=== PATIENT | female | born 1990 | race Caucasian/White ===

== ENCOUNTER 2016-10-13 11:11 | Emergency (ER) | payer MEDICAID ==
[~2016-10-13] VITALS: Ht 157.5 cm; Wt 77.2 kg
[~2016-10-13 11:11] MED LIST: AZIT500I PO; CYCL-36 PO; IBUP800T23 PO; METH750T2 PO; ONDA4TAB7 PO
[2016-10-13 11:12] VITALS: BP 142/78; PULSE 75; RESP 16; TEMP 98.1; O2SAT 98
--- NOTE | 2016-10-13 12:13 | PD ---
HPI Chief Complaint: Oral / Dental Pain or Problem Time Seen by Provider: 12:12 Travel History International Travel<30 days: No Contact w/Intl Traveler<30days: No Traveled to known affect area: No History of Present Illness HPI 26-year-old female presents to emergency room with complaint of left lower tooth pain 2 days. Reports cracking the tooth approximately 6 months ago and within the last 2 days pain has developed and she has swelling to her gums around the tooth. Pain is aggravated with eating and drinking. Denies facial erythema or edema. Denies fever, chills, nausea, vomiting. Allergies to multiple antibiotics as listed on the chart. She says she can take Keflex. Has a primary care provider. No other modifying factors or associated signs and symptoms. PFSH Past Medical History ADHD: Yes Bipolar Disorder: Yes Cancer: No Cardiovascular Problems: No Diabetes: No Diminished Hearing: No Psychiatric: No Integumentary: Yes (MRSA SKIN ABSCESSES, ECZEMA) Migraines: No Seizures: No Thyroid Disease: No Ulcer: No ?: Not LMP: AUG 2016 : 2 Para: 1 Miscarriage: 1 : 0 Dilation and Curettage (D&C): Yes Past Surgical History Appendectomy: No Cholecystectomy: No Other Surgery: Yes (L CALF ABSCESS W MRSA) Social History Alcohol Use: Yes (every weekend) Tobacco Use: No Substance Use: No Allergies-Medications (Allergen,Severity, Reaction): Coded Allergies: Clindamycin (Verified Allergy, Severe, Swelling, 03/10/16) Penicillin (Verified Allergy, Severe, Rash, 03/10/16) Rocephin (Verified Allergy, Severe, Anaphylaxis, 03/10/16) Vancomycin (Verified Allergy, Intermediate, Rash, 03/10/16) Adhesives (Verified Allergy, Mild, Rash, 03/10/16) Septra (Verified Allergy, Mild, Rash, 03/10/16) *MDRO Multi-Drug Resistant Organism (Verified Adverse Reaction, Unknown, ) 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 Reported Meds & Prescriptions Reported Meds & Active Scripts Active Ibuprofen 800 Mg Tab 800 Mg PO Q6HR PRN Magic Mouthwash Adult Liq (Multi-Ingredient Mouthwash/Gargle) 120 Ml Susp 5 Ml SWISH-SPIT Q3HR PRN Each 5mL contains: Nystatin 200,000units, Diphenhydramine 4.25mg, Viscous Lidocaine 10mg, Morgan syrup 0.8 mL Keflex (Cephalexin) 500 Mg Cap 500 Mg PO Q6H 10 Days Reported Zoloft (Sertraline HCl) 50 Mg Tab 50 Mg PO DAILY Abilify (Aripiprazole) 2 Mg Tab Unknown Dose PO DAILY Review of Systems Except as stated in HPI: all other systems reviewed are Neg Physical Exam Narrative GENERAL: Well-nourished, well-developed patient, in no acute distress; afebrile , nontoxic-appearing SKIN: Warm and dry. HEAD: Atraumatic. Normocephalic. No facial edema, erythema, tenderness on palpation. No lymphadenopathy. EYES: Pupils equal and round. No scleral icterus. No injection or drainage. ENT: Mucosa pink and moist. Airway patent. MOUTH: Mucous membranes moist, no lesions, tongue and gums appear normal. Left lower tooth #18 with decay and large dental cavity; with tenderness on palpation; surrounding gingiva is edematous and without erythema or drainage. No obvious abscess noted. NECK: Trachea midline. No lymphadenopathy. CARDIOVASCULAR: Regular rate. RESPIRATORY: No accessory muscle use. GASTROINTESTINAL: Flat. MUSCULOSKELETAL: No obvious deformities. No clubbing. No cyanosis. No edema. NEUROLOGICAL: Awake and alert. Oriented 3. No obvious cranial nerve deficits. Motor grossly within normal limits. Normal speech. PSYCHIATRIC: Appropriate mood and affect; insight and judgment normal. Data Data Last Documented VS Vital Signs Date Time Temp Pulse Resp B/P Pulse Ox O2 Delivery O2 Flow Rate FiO2 10/13/16 11:12 98.1 75 16 142/78 98 Orders Ibuprofen (Motrin) (10/13/16 12:30) [facility] Medical Decision Making Medical Screen Exam Complete: Yes Emergency Medical Condition: Yes Medical Record Reviewed: Yes Differential Diagnosis Dentalgia, infected dental cavity, dental abscess, gingivitis Narrative Course 26-year-old female physical exam consistent with dentalgia to the left lower tooth #18. No obvious abscess noted. No facial edema or erythema. Patient is afebrile and nontoxic-appearing. She denies fever, chills, nausea, vomiting. Has a dentist she can follow-up with. Patient says she can take Keflex. Keflex , Magic mouthwash, ibuprofen, Peridex mouth rinse prescribed for home. Ibuprofen administered in the ER. Instructed patient to follow up with dentist and she verbalized understanding and agreement with treatment plan. Patient is medically cleared and stable for discharge. Discussed reasons to return to the emergency department. Instructed patient to follow up with primary care provider. Patient agrees with treatment plan. The patients vital signs are stable and the patient is stable for outpatient follow-up and treatment. Patient discharged home, stable and in no acute distress. Diagnosis Primary Impression: Dentalgia Referrals: Dentist Primary Care Physician Patient Instructions: Dental Abscess (ED), Dental Caries (ED), General Instructions, Toothache (ED) Departure Forms: Tests/Procedures, Work Release Enter return to work date: Oct 13, 2016 Additional Instructions: Complete full course of antibiotics Ibuprofen as directed and as needed to reduce pain and inflammation Use Magic mouthwash rinse as directed and as needed to decrease pain Use Peridex as directed for oral hygiene Warm compresses to the affected area Follow-up with dentist Follow-up with primary care provider Return to emergency department immediately with worsening of symptoms Med/Other Pt SpecificInfo: Prescription(s) given Scripts Chlorhexidine Gluconate (Mouth) Liq (Peridex Liq)0.12% Soln15 Ml SWISH-SPIT BID 10 Days Ref 0 Prov:Ruthie Hawley 10/13/16 Ibuprofen 800 Mg [id number] Mg PO Q6HR PRN (PAIN) #30 TAB Ref 0 Prov:Ruthie Hawley 10/13/16 Rvpyuvvd-Qkftqisgcbzqvzd-Smoyuetud Liq (Magic Mouthwash Adult Liq)120 Ml Susp5 Ml SWISH-SPIT Q3HR PRN (PAIN SCALE 1 TO 10) #120 ML Ref 0 Each 5mL contains: Nystatin 200,000units, Diphenhydramine 4.25mg, Viscous Lidocaine 10mg, Morgan syrup 0.8 mL Prov:Ruthie Hawley 10/13/16 Cephalexin (Keflex)500 Mg [id number] Mg PO Q6H 10 Days Ref 0 Prov:Ruthie Hawley 10/13/16 Disposition: 01 DISCHARGE HOME Condition: Stable Ruthie Hawley Oct 13, 2016 12:13
[2016-10-13] MEDS ORDERED: ZOLO50TA PO (12:16)
[2016-10-13] MEDS ORDERED: ZOLO25TA PO (12:16)
[2016-10-13] MEDS ORDERED: ABIL2TAB2 PO (12:16)
[2016-10-13] MEDS ORDERED: IBUP800T23 PO (12:20)
[2016-10-13] MEDS ORDERED: MAGICADU2 SWISH-SPIT (12:20)
[2016-10-13] MEDS ORDERED: PERI0.126 SWISH-SPIT (12:20)
[2016-10-13] MEDS ORDERED: CEPH-460 PO (12:20)
[2016-10-13] MEDS ORDERED: IBUPROFEN 800 MG TAB PO ONE (12:30)
== END 2016-10-13 12:41 | disposition home or self-care (01) ==
LOC: NEPB 11:11
DX: K08.89 Other specified disorders of teeth and supporting structures (principal); F90.9 Attention-deficit hyperactivity disorder, unspecified type; F31.9 Bipolar disorder, unspecified
CPT/HCPCS: 99282

== ENCOUNTER 2017-03-16 16:14 | Emergency (ER) | payer MEDICAID ==
[~2017-03-16] VITALS: Ht 157.5 cm; Wt 65.0 kg
[~2017-03-16 16:14] MED LIST changes: +ABIL2TAB2 PO; -AZIT500I PO; +CEPH-460 PO; -CYCL-36 PO; +MAGICADU2 SWISH-SPIT; -METH750T2 PO; -ONDA4TAB7 PO; +PERI0.126 SWISH-SPIT; +ZOLO50TA PO
[2017-03-16 16:16] VITALS: BP 131/68; PULSE 94; RESP 17; TEMP 98.6; O2SAT 99
--- NOTE | 2017-03-16 16:39 | PD ---
HPI Chief Complaint: Cardiac Complaint Time Seen by Provider: 16:30 Travel History International Travel<30 days: No Contact w/Intl Traveler<30days: No Traveled to known affect area: No History of Present Illness HPI The patient was seen and examined in the presence of the nurse. This patient complains of shortness of breath. Duration is One day. She also felt like her heart was racing. She had some pressure at the top of her chest. No cough or fever. No history of cardiac or lung disease. No alleviating factors. Symptoms severity is moderate. She has history of bipolar but does not feel she was anxious or panicky. No history of PE PFSH Past Medical History ADHD: Yes Bipolar Disorder: Yes Cancer: No Cardiovascular Problems: No Diabetes: No Diminished Hearing: No Psychiatric: No Integumentary: Yes (MRSA SKIN ABSCESSES, ECZEMA) Migraines: No Seizures: No Thyroid Disease: No Ulcer: No ?: Not LMP: JANUARY 2017 : 2 Para: 1 Miscarriage: 1 : 0 Dilation and Curettage (D&C): Yes Past Surgical History Appendectomy: No Cholecystectomy: No Other Surgery: Yes (L CALF ABSCESS W MRSA) Social History Alcohol Use: Yes (every weekend) Tobacco Use: No Substance Use: No Allergies-Medications (Allergen,Severity, Reaction): Coded Allergies: Clindamycin (Verified Allergy, Severe, Swelling, 03/10/16) Penicillin (Verified Allergy, Severe, Rash, 03/10/16) Rocephin (Verified Allergy, Severe, Anaphylaxis, 03/10/16) Vancomycin (Verified Allergy, Intermediate, Rash, 03/10/16) Adhesives (Verified Allergy, Mild, Rash, 03/10/16) Septra (Verified Allergy, Mild, Rash, 03/10/16) *MDRO Multi-Drug Resistant Organism (Verified Adverse Reaction, Unknown, ) 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 Reported Meds & Prescriptions Reported Meds & Active Scripts Active Reported Zoloft (Sertraline HCl) 50 Mg Tab 50 Mg PO DAILY Abilify (Aripiprazole) 2 Mg Tab Unknown Dose PO DAILY Review of Systems General / Constitutional: No: Fever Eyes: No: Visual changes HENT: No: Headaches Cardiovascular: Positive: Palpitations, Tachycardia, No: Chest Pain or Discomfort Respiratory: Positive: Shortness of Breath Gastrointestinal: No: Abdominal Pain Genitourinary: No: Dysuria Musculoskeletal: No: Pain Skin: No Rash Neurologic: No: Weakness Psychiatric: No: Depression Endocrine: No: Polydipsia Hematologic/Lymphatic: No: Easy Bruising Physical Exam Narrative GENERAL: Well-nourished, well-developed patient in no apparent distress. SKIN: Focused skin assessment reveals no rash and nodules. Skin is Warm and dry. HEAD: Atraumatic. Normocephalic. EYES: Pupils equal and round. No scleral icterus. No injection or drainage. ENT: No nasal bleeding or discharge. Mucous membranes pink and moist. NECK: Trachea midline. No JVD. CARDIOVASCULAR: Regular rate and rhythm. No murmur appreciated. RESPIRATORY: No accessory muscle use. Clear to auscultation. Breath sounds equal bilaterally. GASTROINTESTINAL: Abdomen soft, non-tender, nondistended. Hepatic and splenic margins not palpable. MUSCULOSKELETAL: No obvious deformities. No clubbing. No cyanosis. No edema. NEUROLOGICAL: Awake and alert. No obvious cranial nerve deficits. Motor grossly within normal limits. Normal speech. PSYCHIATRIC: Appropriate mood and affect; insight and judgment normal. Data Data Last Documented VS Vital Signs Date Time Temp Pulse Resp B/P Pulse Ox O2 Delivery O2 Flow Rate FiO2 03/16/17 16:16 98.6 94 17 131/68 99 Orders Electrocardiogram (03/16/17 ) Iv Access Insert/Monitor (03/16/17 16:36) Complete Blood Count With Diff (03/16/17 16:36) Basic Metabolic Panel (Bmp) (03/16/17 16:36) Ed Urine Pregnancytest Poc (03/16/17 16:36) Prothrombin Time / Inr (Pt) (03/16/17 16:36) Act Partial Throm Time (Ptt) (03/16/17 16:36) D-Dimer (03/16/17 16:36) Mental Health Unit Lead Psychologist / Telemetry [id number] (03/16/17 16:36) Chest, Single Ap (03/16/17 ) Labs Laboratory Tests Test 03/16/17 16:40 White Blood Count 12.2 TH/MM3 Red Blood Count 4.52 MIL/MM3 Hemoglobin 13.1 GM/DL Hematocrit 39.1 % Mean Corpuscular Volume 86.6 FL Mean Corpuscular Hemoglobin 29.0 PG Mean Corpuscular Hemoglobin 33.5 % Concent Red Cell Distribution Width 13.4 % Platelet Count 286 TH/MM3 Mean Platelet Volume 8.6 FL Neutrophils (%) (Auto) 60.6 % Lymphocytes (%) (Auto) 29.0 % Monocytes (%) (Auto) 7.5 % Eosinophils (%) (Auto) 2.3 % Basophils (%) (Auto) 0.6 % Neutrophils # (Auto) 7.4 TH/MM3 Lymphocytes # (Auto) 3.5 TH/MM3 Monocytes # (Auto) 0.9 TH/MM3 Eosinophils # (Auto) 0.3 TH/MM3 Basophils # (Auto) 0.1 TH/MM3 CBC Comment DIFF FINAL Differential Comment Prothrombin Time 10.3 SEC Prothromb Time International 0.9 RATIO Ratio Activated Partial 29.4 SEC Thromboplast Time D-Dimer Quantitative (PE/DVT) 0.36 MG/L FEU Sodium Level 142 MEQ/L Potassium Level 3.8 MEQ/L Chloride Level 105 MEQ/L Carbon Dioxide Level 25.8 MEQ/L Anion Gap 11 MEQ/L Blood Urea Nitrogen 10 MG/DL Creatinine 0.61 MG/DL Estimat Glomerular Filtration 121 ML/MIN Rate Random Glucose 83 MG/DL Calcium Level 9.0 MG/DL [facility] Medical Decision Making Medical Screen Exam Complete: Yes Emergency Medical Condition: Yes Medical Record Reviewed: Yes Differential Diagnosis PE, anxiety, panic, pneumonia Narrative Course I have reviewed the patient's electronic medical record. IV placed CBC is normal Metabolic profile is normal Urine is negative Coagulation studies are normal D-dimer is 0.36, ruling out PE in this low risk patient who is ambulatory and has no history of cancer or clot I reviewed her EKG which is normal Extended cardiac monitoring reveals sinus rhythm without ectopy or tachycardia I reviewed her chest x-ray which is normal On recheck she looks clinically well. Etiology of her symptoms is unclear. He is stable for outpatient follow-up. She is going to call her family physician tomorrow for follow-up Diagnosis Primary Impression: Shortness of breath Additional Instructions: The patient was advised to follow up with their physician and return if they worsen. Med/Other Pt SpecificInfo: Other Disposition: 01 DISCHARGE HOME Condition: Stable Aldo Zimmerman MD Mar 16, 2017 16:39
--- NOTE | 2017-03-16 16:56 | RADRPT ---
EXAM DATE/TIME: 03/16/2017 16:36 [facility] COMPARISON: CHEST SINGLE AP, March 10, 2016, 18:15. INDICATIONS : Shortness of breath. MEDICAL HISTORY : None. SURGICAL HISTORY : None. ENCOUNTER: Initial ACUITY: 1 day PAIN SCORE: 0/10 LOCATION: Bilateral chest FINDINGS: A single view of the chest demonstrates the lungs to be symmetrically aerated without evidence of mas s, infiltrate or effusion. The cardiomediastinal contours are unremarkable. Osseous structures are intact. CONCLUSION: No acute disease. Rito Fernandez MD on March 16, 2017 at 16:54 Board Certified Radiologist. This report was verified electronically.
[2017-03-16 16:59] LABS: AUTOMATED NEUTROPHIL # 7.4 TH/MM3 (1.8-7.7); BASOPHIL # 0.1 TH/MM3 (0-0.2); BASOPHIL % 0.6 % (0.0-2.0); EOSINOPHIL # 0.3 TH/MM3 (0-0.4); EOSINOPHIL % 2.3 % (0.0-4.0); HEMATOCRIT 39.1 % (35.0-46.0); HEMO FLAGS DIFF FINAL; LYMPHOCYTE # 3.5 TH/MM3 (1.0-4.8); MEAN CELL VOLUME 86.6 FL (80.0-100.0); MEAN CORPUSCULAR HGB CONC 33.5 % (32.0-36.0); MONO % 7.5 % (0.0-8.0); NEUT % 60.6 % (16.0-70.0); PLATELET COUNT 286 TH/MM3 (150-450); RED BLOOD COUNT 4.52 MIL/MM3 (4.00-5.30); RED CELL DISTRIBUTION WIDTH 13.4 % (11.6-17.2); WHITE BLOOD COUNT 12.2 TH/MM3 (4.0-11.0)
[2017-03-16 17:36] LABS: APTT (PATIENT) 29.4 SEC (24.3-30.1); INTERNATIONAL NORMALIZED RATIO 0.9 RATIO; PROTHROMBIN TIME - PATIENT 10.3 SEC (9.8-11.6)
[2017-03-16 17:37] LABS: BICARBONATE 25.8 MEQ/L (21.0-32.0); POTASSIUM 3.8 MEQ/L (3.5-5.1)
--- NOTE | 2017-03-16 21:33 | EKG ---
Date Performed: 03/16/2017 Time Performed: 16:33:23 PTAGE: 26 years EKG: Sinus rhythm NORMAL ECG PREVIOUS TRACING : 02/13/2014 12.02 No significant change from previous tracing noted. DOCTOR: Tyrel Aguiar Interpretating Date/Time 03/16/2017 21:32:00
== END 2017-03-16 18:51 | disposition home or self-care (01) ==
LOC: NEPC 16:14
DX: R06.02 Shortness of breath (principal); F31.9 Bipolar disorder, unspecified; F90.9 Attention-deficit hyperactivity disorder, unspecified type
CPT/HCPCS: 71010; 80048; 84703; 85025; 85379; 85610; 85730; 93005

== ENCOUNTER 2017-04-12 21:16 | Observation (INO) | payer MEDICAID, OTHER ==
[~2017-04-12 21:16] MED LIST changes: -CEPH-460 PO; -IBUP800T23 PO; -MAGICADU2 SWISH-SPIT; -PERI0.126 SWISH-SPIT
[2017-04-12] MEDS ORDERED: SODIUM CHLOR 0.9% 1000 ML INJ 1,000 ML IV SCH (21:29)
[2017-04-12] MEDS ORDERED: ONDANSETRON HCL 4 MG/2 ML VIAL IVP ONE (21:30)
[2017-04-12] MEDS ORDERED: SODIUM CHLORIDE 0.9% FLUSH 10 ML FLUSH IVF PRN ×2 (21:30→23:15)
[2017-04-12] MEDS ORDERED: MORPHINE SULFATE 4 MG/ML INJ IV ONE (21:30)
[2017-04-12 21:33] VITALS: BP 116/62; PULSE 95; RESP 22; TEMP 98.8; O2SAT 98
[2017-04-12 21:37] VITALS: PULSE 96; RESP 18; O2SAT 98
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
[2017-04-12 22:00] LABS: BASOPHIL # 0.1 TH/MM3 (0-0.2); BASOPHIL % 0.5 % (0.0-2.0); EOSINOPHIL # 0.3 TH/MM3 (0-0.4); EOSINOPHIL % 1.5 % (0.0-4.0); HEMATOCRIT 41.6 % (35.0-46.0); HEMO FLAGS DIFF FINAL; LYMPH % 23.7 % (9.0-44.0); LYMPHOCYTE # 4.2 TH/MM3 (1.0-4.8); MEAN CELL VOLUME 87.5 FL (80.0-100.0); MEAN CORPUSCULAR HEMOGLOBIN 29.3 PG (27.0-34.0); MEAN CORPUSCULAR HGB CONC 33.5 % (32.0-36.0); MONO % 5.7 % (0.0-8.0); NEUT % 68.6 % (16.0-70.0); PLATELET COUNT 236 TH/MM3 (150-450); RED BLOOD COUNT 4.75 MIL/MM3 (4.00-5.30); RED CELL DISTRIBUTION WIDTH 13.8 % (11.6-17.2); WHITE BLOOD COUNT 17.5 TH/MM3 (4.0-11.0)
[2017-04-12 22:10] LABS: APTT (PATIENT) 27.8 SEC (24.3-30.1); PROTHROMBIN TIME - PATIENT 10.7 SEC (9.8-11.6)
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
[2017-04-12] MEDS ORDERED: IOHEXOL 350 MG/ML 10 ML VIAL (for RAD DIAG) IV ONE (22:13)
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
[2017-04-12 22:16] LABS: BICARBONATE 19.9 MEQ/L (21.0-32.0); POTASSIUM 3.4 MEQ/L (3.5-5.1)
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
[2017-04-12] MEDS ORDERED: HYDROmorphone HCL PF 1 MG/ML VIAL IVS ONE (22:45)
[2017-04-12] MEDS ORDERED: ONDANSETRON HCL 4 MG/2 ML VIAL IV PRN (23:15)
[2017-04-13] MEDS: MORPHINE SULFATE 4 MG/ML INJ IV PUSH PRN ×6 (00:44→22:22)
[2017-04-13 03:13] VITALS: BP 124/56; PULSE 87; RESP 18; TEMP 98.2; O2SAT 96
[2017-04-13 05:22] LABS: AUTOMATED NEUTROPHIL # 14.5 TH/MM3 (1.8-7.7); BASOPHIL # 0.1 TH/MM3 (0-0.2); BASOPHIL % 0.3 % (0.0-2.0); EOSINOPHIL % 0.2 % (0.0-4.0); HEMATOCRIT 37.2 % (35.0-46.0); HEMO FLAGS DIFF FINAL; LYMPH % 14.4 % (9.0-44.0); LYMPHOCYTE # 2.7 TH/MM3 (1.0-4.8); MEAN CORPUSCULAR HEMOGLOBIN 29.1 PG (27.0-34.0); MEAN CORPUSCULAR HGB CONC 33.5 % (32.0-36.0); MONO % 6.8 % (0.0-8.0); NEUT % 78.3 % (16.0-70.0); PLATELET COUNT 207 TH/MM3 (150-450); RED BLOOD COUNT 4.28 MIL/MM3 (4.00-5.30); RED CELL DISTRIBUTION WIDTH 14.1 % (11.6-17.2); WHITE BLOOD COUNT 18.6 TH/MM3 (4.0-11.0)
[2017-04-13 07:40] VITALS: BP 117/60; PULSE 99; RESP 17; TEMP 98.3; O2SAT 96
[2017-04-13] MEDS: SODIUM CHLORIDE 0.9% FLUSH 10 ML FLUSH IV FLUSH SCH ×2 (09:00→22:20)
[2017-04-13 11:00] VITALS: BP 133/61; PULSE 84; RESP 17; TEMP 98.4; O2SAT 97
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
[2017-04-13 16:47] VITALS: BP 128/65; PULSE 92; RESP 16; TEMP 98.7; O2SAT 97
[2017-04-13] MEDS ORDERED: oxyCODONE/ACETAMINOPHEN 5 MG/325 MG TAB PO PRN (18:00)
[2017-04-13] MEDS: oxyCODONE/ACETAMINOPHEN 5 MG/325 MG TAB PO PRN (18:19)
--- NOTE | 2017-04-13 18:31 | RADRPT ---
EXAM DATE/TIME: 04/13/2017 17:57 [facility] COMPARISON: No previous studies available for comparison. INDICATIONS : Hand pain. MEDICAL HISTORY : None. SURGICAL HISTORY : None. ENCOUNTER: Initial ACUITY: 1 day PAIN SCORE: 0/10 LOCATION: Right hand FINDINGS: No definite fractures, or dislocations are identified. No definite lytic or sclerotic lesion is seen . The joint spaces are well maintained. CONCLUSION: Unremarkable study. Andrew Chávez MD on April 13, 2017 at 18:29 Board Certified Radiologist. This report was verified electronically.
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
[2017-04-13 20:20] VITALS: O2SAT 96
[2017-04-13 20:22] VITALS: BP 127/63; PULSE 78; RESP 20; TEMP 98.1; O2SAT 96
[2017-04-13] MEDS: diphenhydrAMINE HCL 25 MG CAP PO PRN (22:20)
[2017-04-14 00:16] VITALS: BP 134/73; PULSE 70; RESP 18; TEMP 97.9; O2SAT 98
[2017-04-14] MEDS: oxyCODONE/ACETAMINOPHEN 5 MG/325 MG TAB PO PRN ×4 (01:46→21:41)
[2017-04-14] MEDS: MORPHINE SULFATE 4 MG/ML INJ IV PUSH PRN ×3 (04:33→17:47)
[2017-04-14 04:46] VITALS: BP 106/63; PULSE 71; RESP 20; TEMP 98.6; O2SAT 95
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
[2017-04-14 08:26] VITALS: BP 122/60; PULSE 67; RESP 18; TEMP 98.4; O2SAT 97
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
[2017-04-14] MEDS: SODIUM CHLORIDE 0.9% FLUSH 10 ML FLUSH IV FLUSH SCH ×2 (09:32→21:42)
[2017-04-14] MEDS: SERTRALINE HCL 50 MG TAB PO SCH (09:32)
[2017-04-14] MEDS: diphenhydrAMINE HCL 25 MG CAP PO PRN ×2 (09:32→15:24)
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
[2017-04-14 11:41] VITALS: BP 115/55; PULSE 74; RESP 18; TEMP 98; O2SAT 96
[2017-04-14] MEDS ORDERED: LACTULOSE SYRUP 20 GM/30 ML CUP PO PRN (12:45)
--- NOTE | 2017-04-14 13:20 | HHI.PR ---
Subjective Subjective Notes Complains of RUE pain Eating well Awaiting Podiatry evaluation Objective Vitals/I&O Vital Signs Date Time Temp Pulse Resp B/P (MAP) Pulse Ox O2 Delivery O2 Flow Rate FiO2 04/14/17 11:41 98.0 74 18 115/55 (75) 96 04/13/17 07:40 21 04/12/17 21:37 Room Air Labs Laboratory Tests Test 04/14/17 11:15 Radiology Last Impressions Pelvis X-Ray 04/12/172128 Signed Impressions: Service Date/Time: Wednesday, April 12, 2017 22:00 - CONCLUSION: Unremarkable study. Andrew Chávez MD Head CT 04/12/172128 Signed Impressions: Service Date/Time: Wednesday, April 12, 2017 22:06 - CONCLUSION: Unremarkable study. Andrew Chávez MD Chest X-Ray 04/12/172128 Signed Impressions: Service Date/Time: Wednesday, April 12, 2017 22:11 - CONCLUSION: No acute cardiopulmonary disease. Andrew Chávez MD Chest CT 04/12/172128 Signed Impressions: Service Date/Time: Wednesday, April 12, 2017 22:12 - CONCLUSION: Clavicular fracture and soft tissue density anterior mediastinum may be thymic tissue versus substernal hematoma without a subtle fracture. Andrew Chávez MD Cervical Spine CT 04/12/172128 Signed Impressions: Service Date/Time: Wednesday, April 12, 2017 22:06 - CONCLUSION: Unremarkable study. Andrew Chávez MD Abdomen/Pelvis CT 04/12/172128 Signed Impressions: Service Date/Time: Wednesday, April 12, 2017 22:12 - CONCLUSION: Right renal stones and chronic spondylolysis L5. Andrew Chávez MD Radius/Ulna X-Ray 04/12/17 0000 Signed Impressions: Service Date/Time: Wednesday, April 12, 2017 22:08 - CONCLUSION: Unremarkable study. Andrew Chávez MD Humerus X-Ray 04/12/17 0000 Signed Impressions: Service Date/Time: Wednesday, April 12, 2017 22:04 - CONCLUSION: Unremarkable study. Andrew Chávez MD Narrative Exam GENERAL: 27 year old well-nourished, well developed female lying in bed. SKIN: Warm and dry. BUE covered with dry dressing. HEAD: Normocephalic. ENT: No nasal bleeding or discharge. Mucous membranes pink and moist. NECK: Trachea midline. No JVD. CARDIOVASCULAR: Regular rate and rhythm. RESPIRATORY: No accessory muscle use. Lungs clear to auscultation. Breath sounds equal bilaterally. GASTROINTESTINAL: Abdomen soft, non-tender, nondistended. + BS. MUSCULOSKELETAL: Extremities without cyanosis, or edema. RUE sling in place. MAEW. NEUROLOGICAL: Awake and alert. Normal speech. A/P Assessment and Plan INJURIES: RIGHT clavicle fx (non-op) Substernal hematoma RIGHT Pulmonary contusion ? RIGHT great toe fx Diet: Regular Pulm: IS Pain: Percocet, Morphine IV, added ibuprofen Activity: OOB. PT ordered GI: Pepcid Bowel: Selene-colace, Lactulose PRN. No BM yet. DVT: SCDs, Lovenox 40 QD RIGHT clavicle fx Orthopedic consulted Nonoperative management Maintain sling Pain control Substernal hematoma, RIGHT Pulmonary contusion Nonoperative management Pulmonary toileting OOB- PT Pain control CXR pending AM labs RIGHT great toe pain Podiatry consulted- awaiting recommendations Fracture boot ordered CT foot shows no fracture just soft tissue injury Plan of care discussed with patient and her mother at bedside. Attending Statement patient seen at bedside c/o foot pain await podiatry recs pain control Attestation The exam, history, and the medical decision-making described in the above note were completed with the assistance of the mid-level provider. I reviewed and agree with the findings presented. I attest that I had a [id number] encounter with the patient on the same day, and personally performed and documented my assessment and findings in the medical record. Diana Colunga Apr 14, 2017 13:20 Fermin Morales MD Apr 17, 2017 21:13
--- NOTE | 2017-04-14 13:37 | OTSOAPIP ---
TIME SESSION COMPLETED: [address] SCAN FOR R/O FRACTURE OF FOOT. Therapist: Sofia Jaimes OTR/L Signature on file
--- NOTE | 2017-04-14 13:45 | RADRPT ---
EXAM DATE/TIME: 04/14/2017 13:19 [facility] COMPARISON: CHEST SINGLE AP, April 12, 2017, 22:11. INDICATIONS : Contusion. MEDICAL HISTORY : None. SURGICAL HISTORY : None. ENCOUNTER: Subsequent ACUITY: 2 days PAIN SCORE: 9/10 LOCATION: Bilateral chest FINDINGS: A single view of the chest demonstrates the lungs to be hypoinflated with some developing atelectatic changes of the left hemidiaphragm. Lungs are otherwise clear. Accounting for the degree of inspirati on, heart size is normal. Osseous structures are grossly intact. CONCLUSION: Hypoinflation with mild atelectatic changes developing above the left hemidiaphragm.. Mark Mojica MD on April 14, 2017 at 13:42 Board Certified Radiologist. This report was verified electronically.
[2017-04-14] MEDS: DOCUSATE SODIUM 50 MG/SENNA 8.6 MG TAB PO SCH ×2 (14:13→21:41)
[2017-04-14] MEDS: IBUPROFEN 800 MG TAB PO SCH ×2 (14:14→17:47)
[2017-04-14] MEDS: ENOXAPARIN SODIUM 40 MG/0.4 ML SYRINGE SQ SCH (14:14)
[2017-04-14 15:42] VITALS: BP 128/71; PULSE 89; RESP 20; TEMP 98.5; O2SAT 95
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
[2017-04-14] MEDS: FAMOTIDINE 20 MG TAB PO SCH (21:39)
[2017-04-14 21:46] VITALS: BP 130/58; PULSE 76; RESP 18; TEMP 97.5; O2SAT 95
[2017-04-15 00:24] VITALS: BP 135/60; RESP 18; TEMP 98.6; O2SAT 98
[2017-04-15] MEDS: IBUPROFEN 800 MG TAB PO SCH ×3 (01:32→12:28)
[2017-04-15 03:21] VITALS: BP 134/65; PULSE 76; RESP 18; TEMP 98; O2SAT 98
[2017-04-15] MEDS: MORPHINE SULFATE 4 MG/ML INJ IV PUSH PRN (04:08)
[2017-04-15 08:03] VITALS: BP 119/55; PULSE 78; RESP 21; TEMP 97.5; O2SAT 94
[2017-04-15] MEDS: FAMOTIDINE 20 MG TAB PO SCH (09:17)
[2017-04-15] MEDS: DOCUSATE SODIUM 50 MG/SENNA 8.6 MG TAB PO SCH (09:17)
[2017-04-15] MEDS: SERTRALINE HCL 50 MG TAB PO SCH (09:17)
[2017-04-15] MEDS: SODIUM CHLORIDE 0.9% FLUSH 10 ML FLUSH IV FLUSH SCH (09:20)
[2017-04-15] MEDS ORDERED: SENN1TAB PO (10:57)
[2017-04-15] MEDS ORDERED: IBUP800T23 PO (10:57)
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
[2017-04-15 11:21] VITALS: BP 124/58; PULSE 79; RESP 20; TEMP 98.4; O2SAT 83; O2SAT 94
[2017-04-15] MEDS ORDERED: PERC5TAB12 PO (11:26)
[2017-04-15] MEDS: oxyCODONE/ACETAMINOPHEN 5 MG/325 MG TAB PO PRN (13:37)
[2017-04-15] MEDS: ENOXAPARIN SODIUM 40 MG/0.4 ML SYRINGE SQ SCH (14:00)
== END 2017-04-15 17:40 | disposition home or self-care (01) ==
LOC: NEPD 21:16 → NEDA 23:07 → NEPHCDU 04-13 00:22
PROVIDERS: ADMIT Surgery; ATTEND Surgery
DX: S42.001A Fracture of unspecified part of right clavicle, initial encounter for closed fracture (principal); S27.321A Contusion of lung, unilateral, initial encounter; S92.401A Displaced unspecified fracture of right great toe, initial encounter for closed fracture; F31.9 Bipolar disorder, unspecified; V29.9XXA Motorcycle rider (driver) (passenger) injured in unspecified traffic accident, initial encounter; Y92.410 Unspecified street and highway as the place of occurrence of the external cause
CPT/HCPCS: 70450; 71010; 71260; 72125; 72170; 73060; 73090; 73130; 73610; 73630; 73700; 74177; 80048; 80307; 84703; 85025; 85610; 85730; 87641; 96361; 96372; 96374; 96375; 96376; 97163; 97166; 99291; G0378; G8987; G8988; J1170; J1650; J2270; J2405; J7030; L2114; Q9967

== ENCOUNTER 2017-04-17 02:47 | Emergency (ER) | payer MEDICAID ==
[~2017-04-17] VITALS: Ht 157.5 cm; Wt 70.0 kg
[~2017-04-17 02:47] MED LIST changes: -ABIL2TAB2 PO; +IBUP800T23 PO; +PERC5TAB12 PO; +SENN1TAB PO
[2017-04-17 02:49] VITALS: PULSE 73; RESP 16; TEMP 98.4; O2SAT 98
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
[2017-04-17] MEDS ORDERED: ONDANSETRON HCL 4 MG/2 ML VIAL IV PUSH ONE (03:30)
[2017-04-17] MEDS ORDERED: SODIUM CHLORID 0.9% 500 ML INJ 500 ML IV ONE (03:30)
[2017-04-17] MEDS ORDERED: MORPHINE SULFATE 4 MG/ML INJ IV PUSH ONE (03:30)
--- NOTE | 2017-04-17 04:41 | RADRPT ---
EXAM DATE/TIME: 04/17/2017 03:58 [facility] COMPARISON: No previous studies available for comparison. INDICATIONS : Right arm swelling. MEDICAL HISTORY : ADHD. Bipolar. MRSA. SURGICAL HISTORY : Dilation and curettage. ENCOUNTER: Initial ACUITY: 4 - 6 days PAIN SCORE: 10/10 LOCATION: Right arm. FINDINGS: There is spontaneous flow documented in the brachial, basilic, cephalic, axillary, and subclavian vei ns. The vessels are compressible and augmentation response is documented. No filling defects are se en. The flow is phasic with respiration. Direction of flow in the jugular vein is caudal. CONCLUSION: Normal examination. Ceasar Stanton MD on April 17, 2017 at 4:40 Board Certified Radiologist. This report was verified electronically.
== END 2017-04-17 06:10 | disposition home or self-care (01) ==
LOC: NEPE 02:47
DX: Z48.01 Encounter for change or removal of surgical wound dressing (principal); M79.89 Other specified soft tissue disorders
CPT/HCPCS: 93971; 96374; 96375; 99285; J2270; J2405; J7040

== ENCOUNTER 2017-04-21 14:08 | Emergency (ER) | payer MEDICAID, OTHER ==
[2017-04-21 14:11] VITALS: BP 143/69; PULSE 91; RESP 16; TEMP 98.4; O2SAT 99
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
== END 2017-04-21 16:11 | disposition home or self-care (01) ==
LOC: NEPK 14:08
DX: S69.91XD Unspecified injury of right wrist, hand and finger(s), subsequent encounter (principal); S59.911D Unspecified injury of right forearm, subsequent encounter; Z86.59 Personal history of other mental and behavioral disorders; Z86.14 Personal history of Methicillin resistant Staphylococcus aureus infection; Z87.2 Personal history of diseases of the skin and subcutaneous tissue; V29.9XXD Motorcycle rider (driver) (passenger) injured in unspecified traffic accident, subsequent encounter
CPT/HCPCS: 73110; 99283; L3908

== ENCOUNTER 2017-08-30 10:21 | Emergency (ER) | payer MEDICAID ==
[~2017-08-30 10:21] MED LIST changes: +IBUP1TAB7 PO; -IBUP800T23 PO
[2017-08-30 10:23] VITALS: BP 136/70; PULSE 80; RESP 14; TEMP 98.4; O2SAT 95
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
[2017-08-30] MEDS ORDERED: RESP: ALBUTEROL 2.5 MG/3 ML NEB (SCH) INH ONE (11:00)
[2017-08-30] MEDS ORDERED: predniSONE 20 MG TAB PO ONE (11:00)
--- NOTE | 2017-08-30 11:10 | RADRPT ---
EXAM DATE/TIME: 08/30/2017 10:57 [facility] COMPARISON: CHEST SINGLE AP, April 14, 2017, 13:19. INDICATIONS : Cough. MEDICAL HISTORY : None. SURGICAL HISTORY : None. ENCOUNTER: Initial ACUITY: 1 day PAIN SCORE: 0/10 LOCATION: Bilateral chest FINDINGS: A single view of the chest demonstrates the lungs to be symmetrically aerated without evidence of mas s, infiltrate or effusion. The cardiomediastinal contours are unremarkable. Osseous structures are intact. CONCLUSION: No acute disease. Ravi Jackson MD on August 30, 2017 at 11:07 Board Certified Radiologist. This report was verified electronically.
[2017-08-30] MEDS ORDERED: VENTAER INH (12:06)
[2017-08-30] MEDS ORDERED: PRED-503 PO (12:06)
[2017-08-30] MEDS ORDERED: BENZ100 PO (12:07)
== END 2017-08-30 12:27 | disposition home or self-care (01) ==
LOC: NEPD 10:21
DX: J20.9 Acute bronchitis, unspecified (principal); F90.9 Attention-deficit hyperactivity disorder, unspecified type; F31.9 Bipolar disorder, unspecified; Z79.899 Other long term (current) drug therapy; Z88.0 Allergy status to penicillin; Z88.5 Allergy status to narcotic agent; Z88.2 Allergy status to sulfonamides; Z88.8 Allergy status to other drugs, medicaments and biological substances
CPT/HCPCS: 71045; 86403; 87081; 87804; 87880; 94664; 99284; J7512; J7613